=== PATIENT | female | born 1990 | race Caucasian/White ===

== ENCOUNTER 2022-03-30 06:42 | Emergency (ER) | payer SELFPAY ==
[2022-03-30] MEDS ORDERED: Ibuprofen 800 MG TAB ONE (07:59)
[2022-03-30] MEDS ORDERED: Ondansetron ODT 4 MG TAB ONE (07:59)
== END 2022-03-30 09:02 | disposition home or self-care (01) ==
LOC: ERS 06:42
DX: B34.9 Viral infection, unspecified (principal); Z20.822 Contact with and (suspected) exposure to COVID-19
CPT/HCPCS: 99283; Q0162; U0003; U0005